=== PATIENT | female | born 1995 | race Two or more races ===

== ENCOUNTER 2017-08-09 12:22 | Emergency (ER) | payer MEDICAID ==
[~2017-08-09] VITALS: Ht 157.5 cm; Wt 51.7 kg
[2017-08-09 13:22] LABS: Basophils # (auto) 0 uL; Basophils % (auto) 0.4 % (0.0-2.0); Eosinophils # (auto) 0.2 uL; Hematocrit 36.5 % (36.0-46.0); Hemoglobin 12.6 g/dL (12.2-16.2); Lymphocytes # (auto) 1.5 uL; Lymphocytes % (auto) 18.4 % (10.0-50.0); Mean Corpuscular Hemoglobin 30.7 pg (28.0-32.0); Mean Corpuscular Hgb Conc. 34.4 g/dL (32.0-36.0); Mean Corpuscular Volume 89.2 fL (80.0-100.0); Mean Platelet Volume 7.9 fL (6.9-10.8); Monocytes # (auto) 0.4 uL; Monocytes % (auto) 4.8 % (0.0-12.0); Neutrophils % (auto) 73.4 % (37.0-80.0); Platelet Count (auto) 266 10^3/uL (140-450); Red Cell Distribution Width 12.1 % (11.8-14.3); White Blood Cell 8.2 10^3/uL (4.4-10.8)
[2017-08-09 13:26] LABS: Albumin 3.5 g/dL (3.4-5.0); Calcium 8.6 mg/dL (8.5-10.1); Potassium 4.2 mmol/L (3.5-5.1)
[2017-08-09 13:28] LABS: BUN/Creatinine Ratio 13.2
[2017-08-09 13:30] LABS: Bilirubin, Total 0.3 mg/dL (0.2-1.0); Total Protein 6.9 g/dL (6.4-8.2)
[2017-08-09] MEDS ORDERED: SODIUM CHLORIDE 0.9% 1,000 ML IVB ONE (13:35)
[2017-08-09 14:16] LABS: Urine Bilirubin Negative (Negative); Urine Blood 2+ /uL (Negative); Urine Color Yellow (Yellow); Urine Glucose Normal (Normal); Urine Ketone Negative (Negative); Urine Mucus FEW (None Seen); Urine Nitrite Negative (Negative); Urine RBC 134 /hpf (0 - 4); Urine Squamous Epithelial Cell FEW /hpf (<5); Urine Urobilinogen Normal (Negative); Urine pH 5.5 (5.0-8.0)
[2017-08-09 15:54] VITALS: BP 103/57
== END 2017-08-09 16:51 | disposition home or self-care (01) ==
LOC: ER 12:22
DX: O36.4XX0 Maternal care for intrauterine death, not applicable or unspecified (principal); Z3A.13 13 weeks gestation of pregnancy; Z87.891 Personal history of nicotine dependence
CPT/HCPCS: 36415; 76801; 76817; 80053; 81001; 84702; 85025; 94761; 96360; 96361; 99285; J7030

== ENCOUNTER 2018-04-19 16:50 | Observation (INO) | payer OTHER ==
[2018-04-19 17:44] LABS: Urine Bacteria NONE SEEN /hpf (None Seen); Urine Blood Negative /uL (Negative); Urine Mucus FEW (None Seen); Urine WBC 50 /hpf (0 - 5)
== END 2018-04-19 18:15 | disposition home or self-care (01) | DRG 566 ==
LOC: LDRP 16:50
PROVIDERS: ADMIT Specialist; ATTEND Specialist
DX: O26.893 Other specified pregnancy related conditions, third trimester (principal); H53.8 Other visual disturbances; O23.43 Unspecified infection of urinary tract in pregnancy, third trimester; N89.8 Other specified noninflammatory disorders of vagina; M54.9 Dorsalgia, unspecified; R10.30 Lower abdominal pain, unspecified; Z3A.29 29 weeks gestation of pregnancy
CPT/HCPCS: 59025; 81001; 81002; G0378

== ENCOUNTER → 2020-03-09 | Emergency (ER) | payer MEDICAID ==
[~2020-03-09] VITALS: Ht 157.5 cm; Wt 56.7 kg
[2020-03-09 06:24] VITALS: BP 131/92
== END | disposition home or self-care (01) ==
LOC: ER 05:46
DX: S63.502A Unspecified sprain of left wrist, initial encounter (principal); F17.210 Nicotine dependence, cigarettes, uncomplicated; Y04.0XXA Assault by unarmed brawl or fight, initial encounter; Y93.89 Activity, other specified; Y92.89 Other specified places as the place of occurrence of the external cause; Y99.8 Other external cause status
CPT/HCPCS: 73110; 81025

== ENCOUNTER 2020-06-05 05:17 | Emergency (ER) | payer MEDICAID ==
[~2020-06-05] VITALS: Ht 157.5 cm; Wt 79.4 kg
[2020-06-05 07:27] VITALS: BP 118/84
[2020-06-05] MEDS ORDERED: ACETAMINOPHEN/CODEINE#3 (300/30mg) TAB PO ONE (07:45)
== END 2020-06-05 08:25 | disposition home or self-care (01) ==
LOC: ER 05:19
DX: S00.11XA Contusion of right eyelid and periocular area, initial encounter (principal); S06.0X1A Concussion with loss of consciousness of 30 minutes or less, initial encounter; R51 Headache; Z87.891 Personal history of nicotine dependence; Y08.89XA Assault by other specified means, initial encounter; Y93.89 Activity, other specified; Y92.89 Other specified places as the place of occurrence of the external cause; Y99.8 Other external cause status
CPT/HCPCS: 70450; 70486; 72125

== ENCOUNTER 2021-06-12 19:40 | Emergency (ER) | payer MEDICAID ==
[~2021-06-12] VITALS: Ht 154.9 cm; Wt 67.1 kg
[2021-06-12 19:47] VITALS: BP 124/86
[2021-06-13] MEDS ORDERED: ONDANSETRON ODT 4 MG TAB PO ONE (00:30)
[2021-06-13] MEDS ORDERED: ACETAMINOPHEN/CODEINE#3 (300/30mg) TAB PO ONE (00:30)
== END 2021-06-13 00:50 | disposition home or self-care (01) ==
LOC: ER 19:43
DX: S00.03XA Contusion of scalp, initial encounter (principal); K21.9 Gastro-esophageal reflux disease without esophagitis; Z87.891 Personal history of nicotine dependence; Y04.2XXA Assault by strike against or bumped into by another person, initial encounter; Y93.89 Activity, other specified; Y92.89 Other specified places as the place of occurrence of the external cause; Y99.8 Other external cause status
CPT/HCPCS: 70450; 72125; 93005; 99285; Q0162

== ENCOUNTER 2022-07-19 10:32 | Inpatient (IN) | payer MEDICAID ==
[~2022-07-19] VITALS: Ht 154.9 cm; Wt 76.7 kg
[2022-07-19 11:17] LABS: Basophils # (auto) 0 10 ^3/uL (0-0.2); Basophils % (auto) 0.3 % (0.0-2.0); Eosinophils # (auto) 0.4 10 ^3/uL (0-0.8); Hematocrit 38.3 % (36.0-46.0); Hemoglobin 12.9 g/dL (12.2-16.2); Lymphocytes # (auto) 2.3 10 ^3/uL (0.4-5.4); Lymphocytes % (auto) 28.5 % (10.0-50.0); Mean Corpuscular Hgb Conc. 33.8 g/dL (32.0-36.0); Mean Corpuscular Volume 85.8 fL (80.0-100.0); Monocytes # (auto) 0.4 10 ^3/uL (0-1.3); Monocytes % (auto) 5.2 % (0.0-12.0); Neutrophils # (auto) 4.9 10 ^3/uL (1.6-8.6); Red Blood Cells 4.46 10^6/uL (4.0-5.20); Red Cell Distribution Width 12.4 % (11.8-14.3)
[2022-07-19 11:26] LABS: Albumin 3.6 g/dL (3.4-5.0); Calcium 8.7 mg/dL (8.5-10.1); Potassium 3.4 mmol/L (3.5-5.1)
[2022-07-19 11:31] LABS: BUN/Creatinine Ratio 15.2; Bilirubin, Total 0.6 mg/dL (0.2-1.0); Total Protein 7.5 g/dL (6.4-8.2)
[2022-07-19] MEDS ORDERED: SODIUM CHLORIDE 0.9% 500 ML IVB ONE (11:45)
[2022-07-19] MEDS ORDERED: SODIUM CHLORIDE 0.9% 1,000 ML IV ONE (11:45)
[2022-07-19] MEDS ORDERED: MORPHINE SULFATE 4 MG/ML SYR/VIAL IV ONE (11:45)
[2022-07-19] MEDS ORDERED: ONDANSETRON HCL 4 MG/2 ML VIAL IV ONE (11:45)
[2022-07-19 12:18] LABS: Magnesium 1.8 mg/dL (1.6-2.6)
[2022-07-19 14:21] LABS: INR 0.95 (0.9-1.15); Partial Thromboplastin Time 26.6 sec (24.6-33.4)
[2022-07-19] MEDS ORDERED: ceFAZolin 1GM/50ML 50 ML IV ONE (15:00)
[2022-07-19] MEDS ORDERED: ONDANSETRON HCL 4 MG/2 ML VIAL IV PRN (15:00)
[2022-07-19] MEDS ORDERED: NITROGLYCERIN 0.4 MG SL TAB SL PRN (15:00)
[2022-07-19] MEDS ORDERED: MORPHINE SULFATE INJ 2 MG/ml SYRG IV PRN (15:00)
[2022-07-19] MEDS ORDERED: ACETAMINOPHEN IV 100 ML IV ONE (15:00)
[2022-07-19] MEDS ORDERED: SUCCINYLCHOLINE CHLORIDE 20 MG/ML 10ML VIAL IV ONE (15:27)
[2022-07-19] MEDS ORDERED: fentaNYL CITRATE 100 MCG/2 ML VL ONE (15:29)
[2022-07-19] MEDS ORDERED: ROCURONIUM 10MG/ML 10ML VIAL IV ONE (15:34)
[2022-07-19] MEDS ORDERED: HYDROCORTISONE SOD SUCC 100 MG/2ML INJ VIAL ONE (15:50)
[2022-07-19] MEDS ORDERED: ETOMIDATE (2MG/ML) 20ML VIAL IV ONE (16:14)
[2022-07-19] MEDS ORDERED: BUPIVACAINE W/ EPINEPH 0.5% INJ 50ML MDV IJ ONE (16:28)
[2022-07-19] MEDS ORDERED: ONDANSETRON HCL 4 MG/2 ML VIAL ONE (16:41)
[2022-07-19] MEDS ORDERED: NEOSTIGMINE 1 MG/ML INJ (10mg/10ML VIAL) ONE (16:43)
[2022-07-19] MEDS ORDERED: GLYCOPYRROLATE 0.2 MG/ML 1ML VIAL ONE (16:43)
[2022-07-19] MEDS ORDERED: MEPERIDINE HCL (25 MG/ML) 1ML VIAL ONE (17:09)
[2022-07-19] MEDS ORDERED: METOCLOPRAMIDE HCL 5MG/ml INJ 2ml VIAL IV PRN (17:15)
[2022-07-19] MEDS ORDERED: HYDROmorphone HCL 2 MG/ML VL/or syr IV PRN ×2 (17:15)
[2022-07-19 18:45] VITALS: BP 106/45
[2022-07-19] MEDS: SODIUM CHLORIDE 0.9% 1,000 ML IV SCH (18:45)
[2022-07-19] MEDS: MORPHINE SULFATE 4 MG/ML SYR/VIAL IV PRN (21:24)
[2022-07-19 22:00] VITALS: BP 102/61
[2022-07-20] MEDS: SODIUM CHLORIDE 0.9% 1,000 ML IV SCH ×4 (02:26→23:00)
[2022-07-20 05:00] VITALS: BP_SYST 100; BP_SYST 102; BP_DIAS 67; BP_DIAS 71
[2022-07-20 05:49] LABS: Basophils # (auto) 0 10 ^3/uL (0-0.2); Basophils % (auto) 0.2 % (0.0-2.0); Eosinophils # (auto) 0 10 ^3/uL (0-0.8); Eosinophils % (auto) 0.3 % (0.0-7.0); Hematocrit 29.3 % (36.0-46.0); Hemoglobin 10.1 g/dL (12.2-16.2); Lymphocytes % (auto) 20.4 % (10.0-50.0); Mean Corpuscular Hemoglobin 29.5 pg (28.0-32.0); Mean Corpuscular Hgb Conc. 34.4 g/dL (32.0-36.0); Mean Corpuscular Volume 85.7 fL (80.0-100.0); Monocytes # (auto) 0.5 10 ^3/uL (0-1.3); Monocytes % (auto) 5.2 % (0.0-12.0); Neutrophils # (auto) 7.2 10 ^3/uL (1.6-8.6); Neutrophils % (auto) 73.9 % (37.0-80.0); Red Blood Cells 3.42 10^6/uL (4.0-5.20); Red Cell Distribution Width 12.2 % (11.8-14.3); White Blood Cell 9.7 10^3/uL (4.4-10.8)
[2022-07-20] MEDS: MORPHINE SULFATE 4 MG/ML SYR/VIAL IV PRN ×3 (06:10→18:39)
[2022-07-20] MEDS ORDERED: DOCU-94 PO (07:28)
[2022-07-20] MEDS ORDERED: ONDA-144 PO (07:28)
[2022-07-20] MEDS ORDERED: IBUP800T27 PO (07:28)
[2022-07-20] MEDS ORDERED: HYDR-4902 PO (07:28)
[2022-07-20 09:00] VITALS: BP 104/68
[2022-07-20 13:00] VITALS: BP 99/61
[2022-07-20 17:00] VITALS: BP 101/50
[2022-07-20 22:00] VITALS: BP 99/60
[2022-07-21] MEDS: SODIUM CHLORIDE 0.9% 1,000 ML IV SCH ×2 (07:01→18:19)
[2022-07-21 08:00] VITALS: BP 108/60
[2022-07-21 09:00] VITALS: BP_SYST 101; BP_SYST 108; BP_DIAS 60; BP_DIAS 62
[2022-07-21 12:52] VITALS: BP 108/66
[2022-07-21 16:35] VITALS: BP 114/75
[2022-07-21 22:00] VITALS: BP 109/66
[2022-07-22] MEDS: SODIUM CHLORIDE 0.9% 1,000 ML IV SCH ×2 (01:01→07:00)
[2022-07-22 05:00] VITALS: BP 104/61
[2022-07-22 08:00] VITALS: BP 118/68
[2022-07-22] MEDS ORDERED: SORE THROAT SPRAY 6OZ BOTTLE MT PRN (08:30)
[2022-07-22 09:00] VITALS: BP 118/68
[2022-07-22 10:32] VITALS: BP 118/68
== END 2022-07-22 12:41 | disposition home or self-care (01) | DRG 547 ==
LOC: ER 10:32 → WEST WING 18:30
PROVIDERS: ADMIT Obstetrics & Gynecology; ATTEND Obstetrics & Gynecology
PROC: 0D9W4ZZ Drainage of Peritoneum, Percutaneous Endoscopic Approach (ICD-10-PCS; 2022-07-19)
PROC: 10T24ZZ Resection of Products of Conception, Ectopic, Percutaneous Endoscopic Approach (ICD-10-PCS; principal; 2022-07-19 15:44)
DX: O00.00 Abdominal pregnancy without intrauterine pregnancy (principal); K66.1 Hemoperitoneum; Z3A.01 Less than 8 weeks gestation of pregnancy; R10.0 Acute abdomen; Z90.49 Acquired absence of other specified parts of digestive tract; Z20.822 Contact with and (suspected) exposure to COVID-19
CPT/HCPCS: 36415; 76705; 76801; 76817; 80053; 83690; 83735; 84702; 85025; 85610; 85730; 86850; 86900; 86901; 96361; 96374; 96375; G0378; J0131; J0330; J0690; J2405